=== PATIENT | male | born 1990 | race Caucasian/White ===

== ENCOUNTER 2017-08-08 10:15 | Inpatient (IN) | payer SELFPAY ==
[2017-08-08] VITALS (8 sets, daily range): BP systolic 109–137; BP diastolic 60–77
[~2017-08-08] VITALS: Ht 177.8 cm; Wt 70.5 kg
--- NOTE | ~2017-08-08 | PR ---
[place], [place] PROGRESS NOTE NAME: MANDA GUZMAN UNIT #: [id number] ROOM: 415 DOCTOR: TUNG STERLING MD BIRTHDATE: [birth year] DOS: 08/10/2017 REASON FOR VISIT: Atrial fibrillation. The patient is feeling better. No palpitations, dizziness. He slept good last night. No PND, no orthopnea, no fever and chills, no cough. He wanted to go home today. REVIEW OF SYSTEMS: Review of 8 systems negative except as mentioned above. RHYTHM STRIPS: The patient in sinus rhythm, sinus bradycardia at night. PHYSICAL EXAMINATION: VITAL SIGNS: Blood pressure 124/62, pulse 70, respiratory rate was 18. GENERAL: Alert, comfortable, in no acute distress. HEENT: Pupils are round and equal. No jaundice. Tongue was moist and pharynx was clear. NECK: Supple, no distended neck veins, no carotid bruit. CHEST: Symmetrical, nontender. LUNGS: Clear to auscultation bilaterally. HEART: Regular rhythm, no S3, no palpable thrills. ABDOMEN: Benign, nontender. Bowel sounds normal. EXTREMITIES: No edema. Distal pulses are palpable. SKIN: Warm and dry. No cyanosis, no clubbing. NEUROLOGIC: No focal neurologic deficit. Medications and rhythm strips reviewed. IMPRESSION: 1. Paroxysmal atrial fibrillation with rapid ventricular rate, currently in sinus rhythm. 2. Tobacco use. 3. Alcohol abuse. 4. History of illicit drug use. RECOMMENDATIONS: Continue baby aspirin and decrease Cardizem to 120 mg due to bradycardia at night. He wanted to go home today and he will need outpatient 2D echo and possibly cardiac event monitor for any recurrence of paroxysmal atrial fibrillation, then based on that antiarrhythmic therapy versus EP referral would be considered and patient understood that reason for the exacerbation is his alcohol use and he was strongly counseled to quit drinking alcohol that will prevent developing any future atrial fibrillation. Follow up with Dr. Mccarthy after his discharge in our Cardiology clinic. There is no family at bedside at the time of my examination. [place], [place] PROGRESS NOTE NAME: MANDA GUZMAN UNIT #: [id number] ROOM: 415 DOCTOR: TUNG STERLING MD BIRTHDATE: [birth year] TUNG STERLING MD CM:PNTRANS [id number] [phone] TUNG STERLING MD 08/10/172343 interface
--- NOTE | ~2017-08-08 | CON ---
[place], [place] REPORT OF CONSULTATION NAME: MANDA GUZMAN UNIT #: [id number] ROOM: 415 DOCTOR: HALLIE BARRAZA,TUNG BIRTHDATE: [birth year] DOS: 08/09/2017 REASON FOR CONSULTATION: Atrial fibrillation. CONSULTING PHYSICIAN: Dr. Butler. CLINICAL HISTORY: The patient is a 26-year-old gentleman with history of paroxysmal atrial fibrillation, was presented to the Emergency Room with rapid heart rate. He had similar episode a few years ago and also having intermittent symptoms, especially after drinking alcohol. He was seen by Dr. Mccarthy in the past and he was on the medication, which she discontinued several months ago. He does have a history of alcohol abuse, tobacco smoking as well as illicit drugs, especially cocaine, but he did develop some dizziness with his rapid heart rate, but no syncope, no chest pain, no orthopnea, no fever or chills, no cough, no hemoptysis. No nausea, vomiting or diarrhea. No headaches, no blurred vision or double vision, no genitourinary symptoms. His only complaint is rapid heart rate with some dizziness. In the ambulance, he received some adenosine, which did not help to slow down and finally his heart rate slowed down with intravenous Cardizem, so he was admitted to the hospital and Cardiology consult for further recommendations. He denies any PND or orthopnea. REVIEW OF SYSTEMS: Review of the 10 systems negative except as mentioned above. PAST MEDICAL HISTORY: Paroxysmal atrial fibrillation. PAST SURGICAL HISTORY: History of tonsillectomy and ear tubes. SOCIAL HISTORY: The patient does not smoke, does drink alcohol, uses illicit drugs including cocaine as well as marijuana. FAMILY HISTORY: Mother and father healthy. ALLERGIES: No known drug allergies. HOME MEDICATIONS: The patient is supposed to be on aspirin and metoprolol. PHYSICAL EXAMINATION: VITAL SIGNS: Blood pressure 108/61, pulse 82, respiratory rate 20. GENERAL: Alert, comfortable, in no acute distress. HEENT: Pupils are round and equal. No jaundice. Tongue was moist and pharynx was clear. NECK: Supple, no distended neck veins, no carotid bruit. CHEST: Symmetrical, nontender. LUNGS: Clear to auscultation bilaterally. HEART: Regular rhythm, no S3, no significant murmurs, no palpable thrills. ABDOMEN: Benign, nontender. Bowel sounds normal. EXTREMITIES: Showed no edema. Distal pulses are palpable. SKIN: Warm and dry. No cyanosis, no clubbing. NEUROLOGIC: The patient is alert and oriented. No focal neurologic deficit. RECTAL: Deferred. [place], [place] REPORT OF CONSULTATION NAME: MANDA GUZMAN UNIT #: [id number] ROOM: [facility] DOCTOR: HALLIE BARRAZA,TUNG BIRTHDATE: [birth year] GENITOURINARY: Deferred. MUSCULOSKELETAL: No joint tenderness or swelling. REVIEW OF THE DIAGNOSTIC TESTS: EKG and rhythm strips reviewed. EKG showed atrial fibrillation with rapid ventricular rate with nonspecific ST-T changes. Currently, the patient is in sinus rhythm. His labs including CBC, chemistry reviewed. IMPRESSION: 1. Paroxysmal atrial fibrillation with rapid ventricular rate. 2. Alcohol use. 3. Illicit drug use including cocaine and marijuana. 4. Tobacco use. RECOMMENDATIONS: 1. Begin IV Cardizem and start on p.o. Cardizem 180 mg once daily, monitor heart rate and blood pressures. 2. Check his TSH. 3. I would avoid beta blockers due to his history of cocaine use. 4. Aspirin 81 mg once daily. 5. The plan is to discharge him on aspirin and Cardizem and outpatient cardiac event monitor and based on that, further recommendation will be made. 6. The patient strongly counseled to quit smoking and quit using drugs as well as quit drinking alcohol. There is no family at the bedside at the time of my examination. 7. Above treatment plan was discussed with the patient. 8. Possible discharge tomorrow. TUNG STERLING MD CM:CONSTR:REPORT OF CONSULTATION 1438 08/10/17 0009 interface
--- NOTE | ~2017-08-08 | EKG ---
[place], [place] ELECTROCARDIOGRAM REPORT NAME: MANDA GUZMAN UNIT #: [id number] ROOM: [facility] DOCTOR: HALLIE BARRAZA,TUNG BIRTHDATE: [birth year] DOS: 08/08/2017 TIME: 10:16 a.m. CONCLUSION: 1. Atrial fibrillation with rapid ventricular rate. 2. Nonspecific ST-T changes due to tachycardia. 3. Borderline prolonged QT interval. TUNG STERLING MD CM:EKGRPT:ELECTROCARDIOGRAM REPORT [id number] TUNG STERLING MD
[~2017-08-08 10:15] MED LIST: ASPIRIN ADULT L81 M2 PO; HYDROCODONE BIT1 T11 PO; KEFLEX500 MG PO; METOPROLOL SUCC25 M2 PO; ONDANSETRON H2 MG/ML IV
[2017-08-08 10:39] LABS: BASO # 0.1 10*3/uL (0.0-0.1); BASO % 0.6 % (0.0-1.0); EOS # 0.1 10*3/uL (0.0-0.4); EOS % 1.2 % (1.0-4.0); HEMATOCRIT 47.2 % (42.0-52.0); HEMOGLOBIN 16.1 g/dl (14.0-18.0); LYMPH # 1.4 10*3/uL (1.3-4.4); LYMPH % 12.6 % (27.0-41.0); MEAN CELL VOLUME 99.4 fl (80.0-94.0); MEAN CORPUSCULAR HGB 33.9 pg (27.0-31.0); MEAN CORPUSCULAR HGB CONC 34.1 g/dl (33.0-37.0); MEAN PLATELET VOLUME 9.8 fl (9.6-12.3); MONO # 1.1 10*3/uL (0.1-1.0); MONO % 9.4 % (3.0-9.0); NEUT # 8.6 10*3/uL (2.3-7.9); NEUT % 75.8 % (47.0-73.0); PLATELET COUNT AUTOMATED 233 10*3/uL (130-400); RED BLOOD COUNT 4.75 10*6/uL (4.50-5.90); WHITE BLOOD COUNT 11.3 10*3/uL (4.8-10.8)
--- NOTE | 2017-08-08 10:55 | NUR ---
RATE IS BACK UP TO 160. NO CHANGE IN CONDITION.
[2017-08-08 10:57] LABS: ALBUMIN 4.4 gm/dl (3.1-4.5); ALKALINE PHOSPHATASE 82 U/L (45-117); BUN 17 mg/dl (7-24); CHLORIDE 102 mmol/L (98-107); CREATININE 0.98 mg/dL (0.70-1.30); POTASSIUM 3.7 mmol/L (3.5-5.1); SGOT/AST 36 IU/L (3-35); SGPT/ALT 40 U/L (12-78); SODIUM 136 mmol/L (136-145); TOTAL PROTEIN 7.8 gm/dL (6.4-8.2)
[2017-08-08 10:58] LABS: TROPONIN I < 0.015 ng/ml (<0.045)
--- NOTE | 2017-08-08 13:15 | NUR ---
A 26, admitted to , under the services of SHITAL Fitzgerald DO with a diagnosis of AFIB WITH RVR. Chief complaint is PALPITATIONS SINCE 0920 AT HOME. EMS TRIED ADENOSOSINE WITHOUT EFFECT. NO OTHER COMPLAINTS. Patient arrived via stretcher from ER. Monitor applied. Initial assessment completed. Vital signs taken and recorded. SHITAL FITZGERALD DO notified of admission to the unit. Orders received. See assessment for past medical history, medications and allergies. Patient and/or family oriented to unit. [address] visitation policy reviewed. Clothing/patient valuable form completed. SEKOU CHEN
--- NOTE | 2017-08-08 13:44 | NUR ---
NOTIFIED DR Miranda ABREU THAT PATIENT DENIES TAKING ANY HOME MEDS IN A LONG TIME. HE STATES HE WAS ONLY TO TAKE ASA AND METOPROLOL. ALSO NOTIFIED THAT PATIENT DID ADMIT TO DOING A LINE OF COKE LAST NIGHT.
[2017-08-08 15:28] LABS: URINE AMPHETAMINES < 1000 (1000ng/ml); URINE BARBITURATES < 200 (200ng/ml); URINE BENZODIAZEPINES < 200 (200ng/ml); URINE CANNABINOIDS (THC) < 50 (50ng/ml); URINE COCAINE > 300 (300ng/ml); URINE METHADONE < 300 (300ng/ml); URINE OPIATES < 300 (300ng/ml); URINE PHENCYCLIDINE < 25 (25ng/ml)
--- NOTE | 2017-08-08 16:08 | NUR ---
CONSULT CALLED TO LULA AT [facility]
--- NOTE | 2017-08-08 20:15 | NUR ---
PATIENT AROUSES EASILY FOR ASSESSMENT. ALERT AND ORIENTED X3. LUNGS ARE CLEAR THROUGHOUT LUNGFIELDS. ROOM AIR. ABDOMEN IS SOFT AND NON-TENDER UPON PALPATION, BOWEL SOUNDS ARE NORMOACTIVE X 4 QUADS. NO EDEMA TO BLE, PPP. PATIENT DENIES ANY NEEDS AT THE PRESENT TIME. CALL LIGHT IS IN REACH. PATIETNS FATHER IS AT BEDSIDE.
--- NOTE | 2017-08-08 21:44 | NUR ---
24 HOUR CHART CHECK COPMPLETED AT THIS TIME
[2017-08-09] VITALS (10 sets, daily range): BP systolic 107–138; BP diastolic 61–82
--- NOTE | 2017-08-09 00:47 | NUR ---
PATIENT WATCHING TELEVISION IN BED, DENIES ANY NEEDS OR ANY PAIN OR DISCOMFORT. CALL LIGHT IS IN REACH.
[2017-08-09 05:50] LABS: BUN 13 mg/dl (7-24); CHLORIDE 103 mmol/L (98-107); CHOLESTEROL 140 mg/dL (<200); CREATININE 0.78 mg/dL (0.70-1.30); HDL CHOLESTEROL 92 mg/dl (40-60); LDL CHOLESTEROL 35 mg/dL (9-159); MAGNESIUM 2.1 mg/dL (1.5-2.1); PHOSPHOROUS 2.3 mg/dL (2.5-4.9); POTASSIUM 3.8 mmol/L (3.5-5.1); SODIUM 137 mmol/L (136-145); TRIGLYCERIDES 67 mg/dl (<150); VLDL CHOLESTEROL 13 mg/dL (6-40)
[2017-08-09 05:54] LABS: BASO % 0.4 % (0.0-1.0); EOS # 0.3 10*3/uL (0.0-0.4); EOS % 3.9 % (1.0-4.0); HEMATOCRIT 48.6 % (42.0-52.0); HEMOGLOBIN 16.5 g/dl (14.0-18.0); LYMPH % 29.1 % (27.0-41.0); MEAN CELL VOLUME 99.4 fl (80.0-94.0); MEAN CORPUSCULAR HGB 33.7 pg (27.0-31.0); MEAN PLATELET VOLUME 10.5 fl (9.6-12.3); MONO % 14.8 % (3.0-9.0); NEUT # 3.6 10*3/uL (2.3-7.9); NEUT % 51.4 % (47.0-73.0); PLATELET COUNT AUTOMATED 220 10*3/uL (130-400); RED BLOOD COUNT 4.89 10*6/uL (4.50-5.90); RED CELL DISTRI WIDTH 11.9 % (0-14.5)
--- NOTE | 2017-08-09 06:34 | NUR ---
PATIENT RESTING IN BED WITH EYES CLOSED BILATERALLY. RESPIRATIONS ARE EASY AND REGULAR. NO S/S OF DISCOMFORT. FATHER IS AT BEDSIDE AND CALL LIGHT IS IN REACH.
--- NOTE | 2017-08-09 07:34 | NUR ---
Shift chart check completed.
[2017-08-09 07:35] LABS: VITAMIN D, 25-HYDROXY 28.2 ng/mL (30-100)
--- NOTE | 2017-08-09 10:06 | NUR ---
NOTIFIED PHYSICIAN THAT FAMILY WOULD LIKE TO TALK TO THEM
--- NOTE | 2017-08-09 14:30 | NUR ---
DECREASED PATIENT'S CARDIZEM DRIP TO 2.5. PATIENT IS NSR LOW 60'S. PATIENT WAS GIVEN PO CARDIZEM AT 1418. WILL CONTINUE TO MONITOR
--- NOTE | 2017-08-09 16:14 | NUR ---
STOPPED THE CARDIZEM DRIP. PATIENT IS RESTING. STATES HE IS FEELING FINE. HR IS NSR 64 AT THIS TIME.
--- NOTE | 2017-08-09 20:00 | NUR ---
RESTING IN BED. RESP-EASY AND REGULAR. VISITORS AT HIS SIDE. NO C/O AT THIS TIME. CALL LIGHT IN REACH. SEE SHIFT ASSESSMENT.
[2017-08-10] VITALS: BP 113/74
--- NOTE | 2017-08-10 00:15 | NUR ---
PT RESTING IN BED WITH EYES CLOSED. RESP-EASY AND REGULAR. CALL LIGHT IN REACH. SEE SHIFT ASSESSMENT.
--- NOTE | 2017-08-10 04:00 | NUR ---
PT SLEEPING IN BED. RESP-EASY AND REGULAR. CALL LIGHT IN REACH.
--- NOTE | 2017-08-10 05:50 | NUR ---
SLEEPING IN BED. RESP-EASY AND REGULAR. CALL LIGHT IN REACH.
[2017-08-10 08:00] VITALS: BP 124/62
--- NOTE | 2017-08-10 10:21 | NUR ---
PATIENT REFUSED LOVENOX TODAY. PATIENT WAS EDUCATED ON ITS USE. WILL CONTINUE TO MONITOR.
--- NOTE | 2017-08-10 11:51 | NUR ---
DR GARCIA NOTIFIED THAT PATIENT IS OK FOR D/C FROM CARDIOLOGY STANDPOINT.
[2017-08-10 12:00] VITALS: BP 132/85
[2017-08-10] MEDS ORDERED: DILTIAZEM 24HR120 MG PO (12:32)
--- NOTE | 2017-08-10 13:20 | NUR ---
WENT OVER D/C INSTRUCTIONS WITH PATIENT. PATIENT VERBALIZED UNDERSTANDING OF IMPORTANCE OF TAKING CARDIZEM DAILY AND THAT SCRIPTS WERE SENT TO PHARMACY. PATIENT REMOVED HIS NICOTINE PATIENT BEFORE LEAVING. REMOVED IV WITH CATHETER INTACT AND BLEEDING CONTROLLED. PATIENT AMBULATED TO EXIT. PATIENT IS D/C HOME.
== END 2017-08-10 13:20 | disposition home or self-care (01) | DRG 310 ==
LOC: ED 10:15 → EDHOLD 11:06 → 4E 12:22
PROVIDERS: Emergency Medicine; Internal Medicine; ADMIT Internal Medicine
DX: I48.0 Paroxysmal atrial fibrillation (principal); E83.39 Other disorders of phosphorus metabolism; E55.9 Vitamin D deficiency, unspecified; F14.10 Cocaine abuse, uncomplicated; D75.89 Other specified diseases of blood and blood-forming organs; F12.10 Cannabis abuse, uncomplicated; F17.210 Nicotine dependence, cigarettes, uncomplicated; F10.10 Alcohol abuse, uncomplicated; Y90.9 Presence of alcohol in blood, level not specified; D72.825 Bandemia; R73.9 Hyperglycemia, unspecified; Z79.899 Other long term (current) drug therapy; Z79.82 Long term (current) use of aspirin; Z71.6 Tobacco abuse counseling

== ENCOUNTER → 2017-09-01 | Outpatient (CLI) | payer MEDICAID ==
[~2017-09-01] MED LIST changes: +DILTIAZEM 24HR120 MG PO
== END | disposition home or self-care (01) ==
LOC: RESCLI 03:39
DX: I48.2 Chronic atrial fibrillation (principal); Z72.0 Tobacco use; Z71.6 Tobacco abuse counseling

== ENCOUNTER 2017-10-25 20:39 | Emergency (ER) | payer SELFPAY ==
[~2017-10-25] VITALS: Ht 177.8 cm; Wt 74.8 kg
[2017-10-25 21:38] LABS: BASO % 0.6 % (0.0-1.0); EOS # 0.2 10*3/uL (0.0-0.4); EOS % 2.1 % (1.0-4.0); HEMATOCRIT 44.1 % (42.0-52.0); HEMOGLOBIN 15.2 g/dl (14.0-18.0); LYMPH # 1.4 10*3/uL (1.3-4.4); LYMPH % 19.1 % (27.0-41.0); MEAN CORPUSCULAR HGB 33.8 pg (27.0-31.0); MEAN CORPUSCULAR HGB CONC 34.5 g/dl (33.0-37.0); MEAN PLATELET VOLUME 9.7 fl (9.6-12.3); MONO # 1.1 10*3/uL (0.1-1.0); MONO % 14.9 % (3.0-9.0); NEUT # 4.6 10*3/uL (2.3-7.9); NEUT % 63.2 % (47.0-73.0); PLATELET COUNT AUTOMATED 256 10*3/uL (130-400); WHITE BLOOD COUNT 7.2 10*3/uL (4.8-10.8)
[2017-10-25 21:50] LABS: ACT PARTIAL THROMBO TIME 25.1 SECONDS (20.8-31.5)
[2017-10-25 21:57] LABS: ALBUMIN 4.3 gm/dl (3.1-4.5); ALKALINE PHOSPHATASE 87 U/L (45-117); BUN 18 mg/dl (7-24); CHLORIDE 100 mmol/L (98-107); CREATININE 0.92 mg/dL (0.70-1.30); LIPASE 125 U/L (73-393); POTASSIUM 3.5 mmol/L (3.5-5.1); SGOT/AST 22 IU/L (3-35); SGPT/ALT 31 U/L (12-78); SODIUM 136 mmol/L (136-145); TOTAL PROTEIN 7.8 gm/dL (6.4-8.2)
[2017-10-25 21:58] LABS: TROPONIN I < 0.015 ng/ml (<0.045)
[2017-10-25] MEDS ORDERED: CYCLOBENZAPRINE5 M3 PO (23:50)
[2017-10-25] MEDS ORDERED: KETOROLAC10 MG PO (23:50)
== END 2017-10-26 00:32 | disposition home or self-care (01) ==
LOC: ED 20:39
PROVIDERS: Emergency Medicine Emergency Medical Services
DX: S16.1XXA Strain of muscle, fascia and tendon at neck level, initial encounter (principal); I48.91 Unspecified atrial fibrillation; R73.9 Hyperglycemia, unspecified; F17.210 Nicotine dependence, cigarettes, uncomplicated; F10.10 Alcohol abuse, uncomplicated; F12.10 Cannabis abuse, uncomplicated; Z79.82 Long term (current) use of aspirin; Z90.89 Acquired absence of other organs; X58.XXXA Exposure to other specified factors, initial encounter; Y93.89 Activity, other specified; Y92.89 Other specified places as the place of occurrence of the external cause; Y99.0 Civilian activity done for income or pay

== ENCOUNTER 2017-12-06 12:20 | Emergency (ER) | payer SELFPAY ==
[~2017-12-06] VITALS: Ht 182.8 cm; Wt 72.6 kg
--- NOTE | ~2017-12-06 | EKG ---
[place], [place] ELECTROCARDIOGRAM REPORT NAME: MANDA GUZMAN UNIT #: [id number] ROOM: DOCTOR: HALLIE BARRAZA,TUNG BIRTHDATE: [birth year] DOS: 12/06/2017 TIME: 1238 IMPRESSION: 1. Sinus rhythm with sinus arrhythmia. 2. Incomplete right bundle branch block. 3. Anterior ST elevation, possible early repolarization. 4. Normal QT interval. TUNG STERLING MD CM:EKGRPT:ELECTROCARDIOGRAM REPORT 1505 [id number] TUNG STERLING MD
[~2017-12-06 12:20] MED LIST changes: +CYCLOBENZAPRINE5 M3 PO; +KETOROLAC10 MG PO
[2017-12-06 12:44] LABS: BASO % 0.6 % (0.0-1.0); EOS # 0.1 10*3/uL (0.0-0.4); EOS % 2.1 % (1.0-4.0); HEMATOCRIT 44.3 % (42.0-52.0); HEMOGLOBIN 15.3 g/dl (14.0-18.0); LYMPH # 1.2 10*3/uL (1.3-4.4); LYMPH % 23.3 % (27.0-41.0); MEAN CELL VOLUME 97.6 fl (80.0-94.0); MEAN CORPUSCULAR HGB 33.7 pg (27.0-31.0); MEAN CORPUSCULAR HGB CONC 34.5 g/dl (33.0-37.0); MEAN PLATELET VOLUME 9.4 fl (9.6-12.3); MONO # 0.9 10*3/uL (0.1-1.0); MONO % 17.9 % (3.0-9.0); NEUT # 2.9 10*3/uL (2.3-7.9); NEUT % 55.7 % (47.0-73.0); PLATELET COUNT AUTOMATED 227 10*3/uL (130-400); RED BLOOD COUNT 4.54 10*6/uL (4.50-5.90); WHITE BLOOD COUNT 5.2 10*3/uL (4.8-10.8)
[2017-12-06 13:02] LABS: ALBUMIN 3.9 gm/dl (3.1-4.5); ALKALINE PHOSPHATASE 80 U/L (45-117); BUN 12 mg/dl (7-24); CHLORIDE 103 mmol/L (98-107); CREATININE 0.89 mg/dL (0.70-1.30); POTASSIUM 3.9 mmol/L (3.5-5.1); SGOT/AST 29 IU/L (3-35); SGPT/ALT 35 U/L (12-78); SODIUM 140 mmol/L (136-145)
[2017-12-06 13:03] LABS: ETHYL ALCOHOL < 3.0 mg/dl (<3); TROPONIN I < 0.015 ng/ml (<0.045)
== END 2017-12-06 13:27 | disposition home or self-care (01) ==
LOC: ED 12:20
PROVIDERS: Emergency Medicine
DX: R07.89 Other chest pain (principal); I48.91 Unspecified atrial fibrillation; F14.10 Cocaine abuse, uncomplicated; F12.10 Cannabis abuse, uncomplicated; Z90.89 Acquired absence of other organs; Z79.82 Long term (current) use of aspirin

== ENCOUNTER 2019-06-02 04:08 | Emergency (ER) | payer SELFPAY ==
[~2019-06-02] VITALS: Ht 177.8 cm; Wt 72.6 kg
--- NOTE | ~2019-06-02 | EKG ---
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
[2019-06-02 04:48] LABS: BASO % 0.5 % (0.0-1.0); EOS % 0.3 % (1.0-4.0); HEMATOCRIT 44.9 % (42.0-52.0); HEMOGLOBIN 15.2 g/dl (14.0-18.0); LYMPH # 1.2 10*3/uL (1.3-4.4); LYMPH % 13.3 % (27.0-41.0); MEAN CELL VOLUME 98.7 fl (80.0-94.0); MEAN CORPUSCULAR HGB 33.4 pg (27.0-31.0); MEAN CORPUSCULAR HGB CONC 33.9 g/dl (33.0-37.0); MONO # 0.9 10*3/uL (0.1-1.0); MONO % 10.6 % (3.0-9.0); NEUT # 6.7 10*3/uL (2.3-7.9); NEUT % 75.1 % (47.0-73.0); PLATELET COUNT AUTOMATED 241 10*3/uL (130-400); RED BLOOD COUNT 4.55 10*6/uL (4.50-5.90); WHITE BLOOD COUNT 8.9 10*3/uL (4.8-10.8)
[2019-06-02 04:59] LABS: ACT PARTIAL THROMBO TIME 23.2 SECONDS (20.0-32.1)
[2019-06-02 05:06] LABS: ALBUMIN 4.4 gm/dl (3.1-4.5); ALKALINE PHOSPHATASE 87 U/L (45-117); BUN 11 mg/dl (7-24); CHLORIDE 105 mmol/L (98-107); CREATININE 0.99 mg/dL (0.70-1.30); POTASSIUM 3.3 mmol/L (3.5-5.1); SGOT/AST 25 IU/L (3-35); SGPT/ALT 28 U/L (12-78); SODIUM 141 mmol/L (136-145); TOTAL PROTEIN 7.9 gm/dL (6.4-8.2)
[2019-06-02 05:07] LABS: TROPONIN I < 0.015 ng/ml (<0.045)
[2019-06-02] MEDS ORDERED: NORCO 5-325 TA1 EACH PO (05:54)
== END 2019-06-02 06:45 | disposition home or self-care (01) ==
LOC: ED 04:08
PROVIDERS: Student in an Organized Health Care Education/Training Program
DX: S02.609A Fracture of mandible, unspecified, initial encounter for closed fracture (principal); S00.91XA Abrasion of unspecified part of head, initial encounter; S20.319A Abrasion of unspecified front wall of thorax, initial encounter; S40.812A Abrasion of left upper arm, initial encounter; S40.811A Abrasion of right upper arm, initial encounter; S80.812A Abrasion, left lower leg, initial encounter; S80.811A Abrasion, right lower leg, initial encounter; F17.200 Nicotine dependence, unspecified, uncomplicated; Z88.0 Allergy status to penicillin; Z79.899 Other long term (current) drug therapy; Z79.82 Long term (current) use of aspirin; Y08.89XA Assault by other specified means, initial encounter; Y93.89 Activity, other specified; Y92.89 Other specified places as the place of occurrence of the external cause; Y99.8 Other external cause status

== ENCOUNTER 2020-12-03 22:03 | Emergency (ER) | payer OTHER ==
[~2020-12-03] VITALS: Ht 177.8 cm; Wt 68.0 kg
[~2020-12-03 22:03] MED LIST changes: +NORCO 5-325 TA1 EACH PO
== END 2020-12-03 23:42 | disposition home or self-care (01) ==
LOC: ED 22:03
DX: T15.02XA Foreign body in cornea, left eye, initial encounter (principal); K21.9 Gastro-esophageal reflux disease without esophagitis; I48.91 Unspecified atrial fibrillation; F17.200 Nicotine dependence, unspecified, uncomplicated; Z88.0 Allergy status to penicillin; Z79.899 Other long term (current) drug therapy; Z79.82 Long term (current) use of aspirin; Z90.89 Acquired absence of other organs; Z96.22 Myringotomy tube(s) status; X58.XXXA Exposure to other specified factors, initial encounter; Y93.89 Activity, other specified; Y92.89 Other specified places as the place of occurrence of the external cause; Y99.8 Other external cause status

== ENCOUNTER 2021-01-08 18:38 | Emergency (ER) | payer OTHER ==
[~2021-01-08] VITALS: Ht 177.8 cm; Wt 68.0 kg
[2021-01-08] MEDS ORDERED: CEPHALEXIN500 M1 PO (20:44)
[2021-01-08] MEDS ORDERED: ELIMITE 5%60 GM T (20:44)
== END 2021-01-08 21:07 | disposition home or self-care (01) ==
LOC: ED 18:38
DX: R21 Rash and other nonspecific skin eruption (principal); K21.9 Gastro-esophageal reflux disease without esophagitis; F17.200 Nicotine dependence, unspecified, uncomplicated; Z88.0 Allergy status to penicillin; Z79.899 Other long term (current) drug therapy

== ENCOUNTER 2021-01-11 07:41 | Emergency (ER) | payer OTHER ==
[~2021-01-11] VITALS: Ht 177.8 cm
[~2021-01-11 07:41] MED LIST changes: +CEPHALEXIN500 M1 PO; +ELIMITE 5%60 GM T
[2021-01-11 08:08] LABS: BASO % 0.4 % (0.0-1.0); EOS # 0.2 10*3/uL (0.0-0.4); EOS % 2.7 % (1.0-4.0); HEMATOCRIT 47.7 % (42.0-52.0); LYMPH # 1.5 10*3/uL (1.3-4.4); LYMPH % 22.3 % (27.0-41.0); MEAN CORPUSCULAR HGB 32.4 pg (27.0-31.0); MEAN CORPUSCULAR HGB CONC 33.8 g/dl (33.0-37.0); MEAN PLATELET VOLUME 9.6 fl (9.6-12.3); MONO # 0.9 10*3/uL (0.1-1.0); MONO % 13.5 % (3.0-9.0); NEUT # 4.1 10*3/uL (2.3-7.9); PLATELET COUNT AUTOMATED 313 10*3/uL (130-400); RED BLOOD COUNT 4.97 10*6/uL (4.50-5.90); RED CELL DISTRI WIDTH 11.9 % (0-14.5); WHITE BLOOD COUNT 6.7 10*3/uL (4.8-10.8)
[2021-01-11 08:22] LABS: ALBUMIN 4.2 gm/dl (3.1-4.5); ALKALINE PHOSPHATASE 99 U/L (45-117); BUN 14 mg/dl (7-24); CHLORIDE 102 mmol/L (98-107); CPK 311 U/L (39-308); CREATININE 1.06 mg/dL (0.70-1.30); POTASSIUM 3.6 mmol/L (3.5-5.1); SGOT/AST 20 IU/L (3-35); SGPT/ALT 31 U/L (12-78); SODIUM 138 mmol/L (136-145); TOTAL PROTEIN 8.1 gm/dL (6.4-8.2)
[2021-01-11 08:31] LABS: ETHYL ALCOHOL < 3.0 mg/dl (<3)
[2021-01-11 08:42] LABS: BILIRUBIN Negative (Negative); BLOOD Negative (Negative); CLARITY Cloudy (Clear); COLOR Yellow (Yellow); GLUCOSE Negative (Negative); KETONE Negative (Negative); LEUKO ESTERASE Negative (Negative); NITRITE Negative (Negative); SPECIFIC GRAVITY 1.015 (1.001-1.030); UROBILINOGEN 0.2 E.U./dl (0.0-1.0)
[2021-01-11 08:50] LABS: URINE AMPHETAMINES > 1000 (1000ng/ml); URINE BARBITURATES < 200 (200ng/ml); URINE BENZODIAZEPINES < 200 (200ng/ml); URINE CANNABINOIDS (THC) > 50 (50ng/ml); URINE COCAINE < 300 (300ng/ml); URINE METHADONE < 300 (300ng/ml); URINE OPIATES < 300 (300ng/ml)
[2021-01-11 08:53] LABS: URINE PHENCYCLIDINE < 25 (25ng/ml)
[2021-01-11 08:56] LABS: BACTERIA TRACE; EPITHELIAL CELLS 0-2; WBC 0-2 wbc/hpf (0-5)
== END 2021-01-11 15:16 | disposition short-term general hospital (02) ==
LOC: ED 07:41
PROVIDERS: Emergency Medicine
DX: F15.922 Other stimulant use, unspecified with intoxication with perceptual disturbance (principal); I48.91 Unspecified atrial fibrillation; K21.9 Gastro-esophageal reflux disease without esophagitis; Z88.0 Allergy status to penicillin; Z79.899 Other long term (current) drug therapy; Z98.890 Other specified postprocedural states; Z20.822 Contact with and (suspected) exposure to COVID-19

== ENCOUNTER 2021-03-13 09:10 | Emergency (ER) | payer OTHER ==
[~2021-03-13] VITALS: Ht 177.8 cm; Wt 68.0 kg
[2021-03-13] MEDS ORDERED: CLEOCIN HCL150 MG PO (10:30)
[2021-03-13] MEDS ORDERED: Motrin,Rufen800 MG PO (10:30)
== END 2021-03-13 10:33 | disposition home or self-care (01) ==
LOC: ED 09:10
DX: K08.89 Other specified disorders of teeth and supporting structures (principal); F17.200 Nicotine dependence, unspecified, uncomplicated; Z88.0 Allergy status to penicillin; Z98.890 Other specified postprocedural states

== ENCOUNTER 2021-07-19 11:20 | Emergency (ER) | payer OTHER ==
[~2021-07-19 11:20] MED LIST changes: +CLEOCIN HCL150 MG PO; +Motrin,Rufen800 MG PO
[2021-07-19] MEDS ORDERED: VIBRAMYCIN100 MG PO (22:51)
== END 2021-07-19 12:42 | disposition left against medical advice (07) ==
LOC: ED 11:20
DX: Z48.00 Encounter for change or removal of nonsurgical wound dressing (principal); Z88.0 Allergy status to penicillin; Z53.21 Procedure and treatment not carried out due to patient leaving prior to being seen by health care provider

== ENCOUNTER 2021-07-19 21:04 | Emergency (ER) | payer OTHER ==
[~2021-07-19] VITALS: Ht 177.8 cm; Wt 68.0 kg
[2021-07-19] MEDS ORDERED: VIBRAMYCIN100 MG PO (22:51)
== END 2021-07-19 22:52 | disposition home or self-care (01) ==
LOC: ED 21:04
DX: S00.86XA Insect bite (nonvenomous) of other part of head, initial encounter (principal); S20.469A Insect bite (nonvenomous) of unspecified back wall of thorax, initial encounter; S40.269A Insect bite (nonvenomous) of unspecified shoulder, initial encounter; S80.862A Insect bite (nonvenomous), left lower leg, initial encounter; S80.861A Insect bite (nonvenomous), right lower leg, initial encounter; W57.XXXA Bitten or stung by nonvenomous insect and other nonvenomous arthropods, initial encounter; Y93.89 Activity, other specified; Y92.89 Other specified places as the place of occurrence of the external cause; Y99.8 Other external cause status